=== PATIENT | male | born 1955 | race Native Hawaiian/Other Pacific Islander ===

== ENCOUNTER 2017-03-04 07:55 | Day surgery (SDC) | payer MEDICARE ==
[~2017-03-04 07:55] MED LIST: MELO15TA2 PO; VICOTAB4; Z.0.UNKNOWN
[2017-03-04 08:26] VITALS: BP 174/74; PULSE 80; RESP 14; TEMP 97.8; O2SAT 96
[2017-03-04] MEDS ORDERED: TRIAMCINOLONE ACETONIDE 40 MG/ML VIAL ONE (09:30)
[2017-03-04] MEDS ORDERED: LIDOCAINE HCL 1% PF 30 ML VIAL ONE (09:33)
--- NOTE | 2017-03-04 14:09 | RADRPT ---
EXAM DATE/TIME: 03/04/2017 08:26 [place] COMPARISON: No previous studies available for comparison. INDICATIONS : Left shoulder fluid collection. MEDICAL HISTORY : Renal calculi. Diabetes. Left shoulder fluid collection. SURGICAL HISTORY : Right arm surgery, when child. ENCOUNTER: Initial ACUITY: 3 months PAIN SCORE: 1/10 LOCATION: Left shoulder. FLUID: Total volume of 3 cc of clear, yellow fluid was removed. Fluid was discarded. Post procedure scanning reveals no hematoma or other complication. TECHNIQUE: 1. Ultrasound guidance for needle aspiration. 2. Aspiration. The risks, benefits, and alternatives to ultrasound guided aspiration were explained to the patient i n detail including the risk of bleeding and infection. Written and verbal informed consent was obtai kiko. With the patient on the ultrasound table, ultrasound imaging was used to select the most appropriate approach for aspiration. Overlying skin was prepped and draped in the usual sterile fashion and with local anesthetic a dermatotomy was made with an 11 blade scalpel. A catheter was introduced into th e cavity and fluid was collected. Under direct ultrasound guidance an 18 gauge needle was placed into the cyst sitting beneath the clav icle and above scapula. 3 cc of viscous fluid were removed. The cyst was irrigated with lidocaine initially collapsed. The cyst was then reinjected the mixture of lidocaine and Kenalog. CONCLUSION: Uncomplicated ultrasound guided aspiration and steroid injection. Neo Leonard MD FACR on March 04, 2017 at 14:05 Board Certified Radiologist. This report was verified electronically.
== END 2017-03-04 09:00 | disposition home or self-care (01) ==
LOC: HRAD 07:55 → HRIP 07:57 → HRAD 09:00
PROVIDERS: ATTEND Orthopaedic Surgery
DX: M85.612 Other cyst of bone, left shoulder (principal); S46.012A Strain of muscle(s) and tendon(s) of the rotator cuff of left shoulder, initial encounter; E11.9 Type 2 diabetes mellitus without complications; M19.90 Unspecified osteoarthritis, unspecified site
CPT/HCPCS: 20612; 76942; J3301